=== PATIENT | female | born 1990 | race Caucasian/White ===

== ENCOUNTER 2022-10-21 19:43 | Inpatient (IN) ==
[2022-10-21] MEDS ORDERED: DEXTROSE 50% 50 ML SYRINGE IV PRN (20:17)
[2022-10-21] MEDS ORDERED: SODIUM CHLORIDE 0.9% 1000ML 1,000 ML IV PRN (20:17)
[2022-10-21] MEDS ORDERED: OXYTOCIN 30 UNITS/500 ML BAG IV PRN ×2 (20:17)
[2022-10-21] MEDS ORDERED: INSULIN REGULAR 250 UNITS in SODIUM CHLORIDE 0.9% 247.5 ML IV PRN (20:17)
[2022-10-21] MEDS ORDERED: LIDOCAINE 1% LOCAL 20 ML VIAL INFIL PRN (20:17)
--- NOTE | 2022-10-21 20:24 | History & Physical Report ---
Date of Service October 21, 2022 Assessment & Plan (1) PROM (premature rupture of membranes): Plan: ROM for clear fluid confirmed on exam. Recommend IOL with pitocin, pt agreeable. Epidural on request. BP initially elevated likely d/t anxiety vs excitement, will get CMP with labs. Also will use insulin and glucose management protocol to ensure tight control peripartum. Pt agreeable. History of Present Illness Primary Care Provider: Suresh Jade LMP: 02/05/22 : 1 Full term: 0 Premature: 0 Total Number of Induced Abortions: 0 Total Number of Spontaneous Abortions: 0 Ectopics: 0 Multiple births: 0 Number of Living Children: 0 and Delivery Plans Conceived on Femara GDM on insulin *Wkly NSTs @32wks and Twice wkly @36wks *Serial growth US @28wks (EFW 10/20 was 76% and AC 90%) *Deliver by [facility]--induction scheduled 11/08/22(penciled her in due to anxiety see below) Obesity (BMI between 35-39 @ beginning of ) *Growth US @ 32 wks *Weekly NSTs @ 36wks Presents to L&D with c/o SROM at 1815 this evening. No painful ctx, no VB, good FM. She has A2GDM and discusses insulin dose changes and recent improvements in sugar control with percentiles improving from their highest measurements. Pt spontaneously voices awareness of risks of large AC and that she wants to attempt vaginal delivery. Allergies Allergy/AdvReac Type Severity Reaction Status Date / Time No Known Drug Allergies Allergy Verified 10/20/22 14:56 Home Medications Medication Instructions Recorded Confirmed Type fluoxetine 10 mg tablet PO 01/11/19 10/20/22 History omeprazole 20 mg capsule,delayed PO 01/11/19 10/20/22 History release Saccharomyces boulardii [Daily PO 04/22/21 10/20/22 History Probiotic (S. boulardii)] fluoxetine 20 mg capsule 20 mg PO DAILY 04/22/21 10/20/22 History prenat.vits,berto,ijw-dxyx-biutp PO 04/22/21 10/20/22 History loratadine [Claritin] PO 04/05/22 10/20/22 History acetone (urine) test (Ketone Urine #50 ea 06/26/22 10/20/22 Rx Test strips) blood sugar diagnostic (OneTouch #150 ea 06/26/22 10/20/22 Rx Verio test strips) blood-glucose meter (OneTouch #1 ea 06/26/22 10/20/22 Rx Verio Reflect Meter) lancets 33 gauge (OneTouch Delica #150 ea 06/26/22 10/20/22 Rx Lancets) insulin NPH isoph U-100 human 100 10 unit (0.1 mL) subcut QPM #15 mL 07/09/22 10/20/22 Rx unit/mL (3 mL) subcutaneous pen (Novolin N FlexPen) pen needle, diabetic 32 gauge x #100 ea 07/09/22 10/20/22 Rx 5/32" (BD Ultra-Fine Susan Pen Needle) Patient History Medical History Acne vulgaris Allergic reaction Anxiety Chronic pelvic pain in female Female hirsutism H/O esophageal reflux H/O varicella Headache Hemorrhoids Lentigines Myalgia and myositis Viral warts Surgical History H/O colonoscopy with polypectomy History of dilation and curettage S/P tonsillectomy Family History Grandmother (Paternal) Breast cancer Grandmother (Maternal) Heart disease Mother Ovarian cancer, Onset Age: 45 Quyen-Danlos syndrome Grandfather (Paternal) Colorectal cancer Social History Smoking Status: Never smoker Do You Dip or Chew Tobacco: No; Hx Alcohol Use: Yes Hx Substance Use: No marital status: marital status details: Johnny Gaviria (32) [phone] Current Living Situation: Spouse Current Living Situation Comment: lives with spouse, dogs current occupational status: employed 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 EFW 8-9lb, most recent growth US reviewed. Results & Data Vital Signs (Past 12 Hours) Vital Signs Temp Pulse Resp BP 10/21/22 19:53 20 10/21/22 19:53 99.1 F 20 10/21/22 19:52 96 H 144/92 H Coding Level of Care Code None Diagnoses PROM (premature rupture of membranes) O42.90
[2022-10-21 21:12] LABS: Hemoglobin 12.4 g/dl (12.0-16.0); Mean Corpuscular Hemoglobin 29.5 pg (25.0-34.0); Mean Corpuscular Hgb Conc 34.4 g/dL (32.0-36.0); Mean Corpuscular Volume 85.7 fL (80.0-100.0); Mean Platelet Volume 11.9 fL (9.4-12.4); Platelet Count 203 K/uL (130-400); RDW Coefficient of Variation 13.8 % (11.5-14.5); RDW Standard Deviation 42.8 fL (36.4-46.3); White Blood Count 9.57 K/ul (4.8-10.8)
[2022-10-21 21:15] LABS: Albumin Globulin Ratio 1.2 (0.9-2); Albumin Level 3.6 gm/dl (3.4-5.0); Bilirubin Direct 0.1 mg/dl (0-0.2); Bilirubin,Total 0.2 mg/dl (0.2-1.0); Calcium 8.9 mg/dl (8.6-10.3); Creatinine Clr Calc Pharmacy 141.4 ml/min; Est GFR (African American) 137.1 ml/min; Est GFR (Non-African American) 118.3 ml/min; Globulin 2.9 gm/dl (2.5-4.0); Potassium 4.1 mmol/L (3.5-5.1); Total Protein 6.5 gm/dl (6.0-8.3)
[2022-10-21] MEDS: DEXTROSE 5% 1,000 ML IV PRN (21:25)
[2022-10-21] MEDS: LACTATED RINGER'S 1,000 ML IV PRN (21:35)
--- NOTE | 2022-10-21 23:24 | Communication Note ---
Date of Service: October 21, 2022 Strip reviewed, course of care d/w SANDY Mancera. T Cat 1, [place] Q4-7, barely uncomfortable. Continue to titrate pitocin upward.
[2022-10-22] MEDS ORDERED: BUTORPHANOL TARTRATE 1 MG/ML VIAL IV ONE (02:18)
[2022-10-22] MEDS ORDERED: LIDOCAINE 2%/EPINEPHRINE 1:200,000 20 ML PF ONE (06:20)
[2022-10-22] MEDS ORDERED: ePHEDrine sulfate 50 MG/ML AMP ONE (06:20)
[2022-10-22] MEDS ORDERED: BUPIVACAINE 0.25% PF 30 ML VIAL ONE (06:20)
[2022-10-22] MEDS ORDERED: SODIUM CHLORIDE 0.9% PF INJ 10 ML VIAL ONE (06:20)
[2022-10-22] MEDS ORDERED: fentaNYL citrate PF 100 MCG/2 ML VIAL ONE (06:20)
[2022-10-22] MEDS ORDERED: fentaNYL 2MCG/ML ROPIVACAINE 1.25MG/ML 100 ML BAG EPI ONE (06:21)
--- NOTE | 2022-10-22 06:44 | Labor Progress Brief Note ---
Date of Service October 22, 2022 Subjective Ready for epidural but wants to wait until her mother arrives to hospital to support her while receiving it. Assessment & Plan (1) Insulin controlled gestational diabetes mellitus (GDM) during : Plan: Insulin/sugar protocol in place. (2) PROM (premature rupture of membranes): Plan: Induction with pitocin in progress. Admission and Anticipated Discharge Date Admission Date: October 21, 2022 Physical Exam Genitourinary: Cervix exam deferred until after upcoming epidural. FHT Cat 1 [place] Q3 Results & Data Vital Signs (Past 12 Hours) Vital Signs Temp Pulse Resp BP 10/21/22 20:12 99.1 F 20 10/22/22 05:07 20 10/22/22 05:07 98.6 F 10/22/22 05:43 76 129/69 10/22/22 04:51 80 108/52 L 10/22/22 03:45 88 123/66 10/22/22 01:13 18 10/22/22 01:13 98.6 F 18 10/22/22 03:02 16 10/22/22 03:02 98.4 F 16 10/22/22 02:43 83 113/73 10/22/22 01:43 81 118/60 10/22/22 00:43 83 135/72 10/21/22 23:44 90 121/77 10/21/22 23:01 98.4 F 93 H 18 135/81 10/21/22 20:33 94 H 137/83 10/21/22 19:53 20 10/21/22 19:53 99.1 F 20 10/21/22 19:52 96 H 144/92 H Coding Level of Care Code None Diagnoses Insulin controlled gestational diabetes mellitus (GDM) during O24.414 PROM (premature rupture of membranes) O42.90
--- NOTE | 2022-10-22 07:58 | Labor Progress Brief Note ---
Date of Service October 22, 2022 Subjective Wants an exam before deciding for epidural. Mom and FOB now at bedside. Assessment & Plan (1) PROM (premature rupture of membranes): Plan: Will get epidural Admission and Anticipated Discharge Date Admission Date: October 21, 2022 Physical Exam Genitourinary: 2/100/-1 clear fluid leaking FHT Cat 1 [place] Q2-3m Pit @ 16 Results & Data Vital Signs (Past 12 Hours) Vital Signs Temp Pulse Resp BP 10/22/22 07:00 97.9 F 18 10/22/22 07:00 18 10/21/22 20:12 99.1 F 20 10/22/22 07:54 77 125/66 10/22/22 07:39 81 128/78 10/22/22 07:24 77 137/79 10/22/22 06:44 77 145/79 H 10/22/22 05:07 20 10/22/22 05:07 98.6 F 20 10/22/22 05:43 76 129/69 10/22/22 04:51 80 108/52 L 10/22/22 03:45 88 123/66 10/22/22 01:13 18 10/22/22 01:13 98.6 F 18 10/22/22 03:02 16 10/22/22 03:02 98.4 F 16 10/22/22 02:43 83 113/73 10/22/22 01:43 81 118/60 10/22/22 00:43 83 135/72 10/21/22 23:44 90 121/77 10/21/22 23:01 98.4 F 93 H 18 135/81 10/21/22 20:33 94 H 137/83 Coding Level of Care Code None Diagnoses PROM (premature rupture of membranes) O42.90
[2022-10-22] MEDS: LACTATED RINGER'S 1,000 ML IV PRN ×2 (08:14→12:55)
--- NOTE | 2022-10-22 08:30 | Anesthesiology Consultation ---
Date of Service October 22, 2022 Assessment & Plan Chart Review Chart Review: Acceptable Risk for Surgery, Patient NOT seen in Pre Admission Testing and Acceptable Risk for Labor Epidural Consults Requested none ASA ASA3 Proposed Anesthesia Anesthesia Type: Labor Epidural and CSE History Height/Weight Height: 5 ft 2 in Weight: 103.419 kg Allergies Allergy/AdvReac Type Severity Reaction Status Date / Time No Known Drug Allergies Allergy Verified 10/20/22 14:56 Medications Home Medications Medication Instructions Recorded Confirmed Last Taken fluoxetine 10 mg tablet 10 mg PO DAILY 01/11/19 10/21/22 10/20/22 21:00 omeprazole 20 mg capsule,delayed 30 mg PO DAILY 01/11/19 10/21/22 10/20/22 release Saccharomyces boulardii [Daily 1 tab PO DAILY 04/22/21 10/21/22 10/20/22 Probiotic (S. boulardii)] prenat.vits,berto,ata-oulp-bywrc 1 tab PO DAILY 04/22/21 10/21/22 10/20/22 loratadine [Claritin] 1 tab PO DAILY 04/05/22 10/20/22 10/20/22 acetone (urine) test (Ketone Urine #50 ea 06/26/22 10/20/22 Unknown Test strips) blood sugar diagnostic (OneTouch #150 ea 06/26/22 10/20/22 Unknown Verio test strips) blood-glucose meter (OneTouch #1 ea 06/26/22 10/20/22 Unknown Verio Reflect Meter) lancets 33 gauge (OneTouch Delica #150 ea 06/26/22 10/20/22 Unknown Lancets) pen needle, diabetic 32 gauge x #100 ea 07/09/22 10/20/22 Unknown 5/32" (BD Ultra-Fine Susan Pen Needle) insulin NPH isoph U-100 human 100 50 unit subcut QPM 10/21/22 10/21/22 10/20/22 unit/mL (3 mL) subcutaneous pen (Novolin N FlexPen) Active Medications Generic Name Dose Route Start Last Admin Trade Name Freq PRN Reason Stop Dose Admin Oxytocin 30 units in 500 mls @ 16 mls/hr 10/21/22 20:17 10/22/22 08:15 Pitocin IV 10/23/22 20:16 1.08 units/hr .Q24H PRN 18 mls/hr Labor Induction/Augmentation Titration Protocol 0.96 UNITS/HR Insulin Human Regular 250 250 mls @ 1 mls/hr 10/21/22 20:17 10/22/22 08:11 units/ Sodium Chloride IV 11/20/22 20:16 1 units/hr .Q24H PRN 1 mls/hr BSG 80mg/dL or ABOVE Titration Protocol 1 UNITS/HR Dextrose 1,000 mls @ 100 mls/hr 10/21/22 20:17 10/22/22 08:12 D5w IV 11/20/22 20:16 75 mls/hr .Q10H PRN Infusion BSG 180 or below Protocol Lactated Ringer's 1,000 mls @ 125 mls/hr 10/21/22 20:17 10/22/22 08:14 Lr IV 10/23/22 20:16 999 mls/hr .Q8H PRN Administration L&D Protocol Protocol Past Medical History Medical History Acne vulgaris Allergic reaction Anxiety Chronic pelvic pain in female Female hirsutism H/O esophageal reflux H/O varicella Headache Hemorrhoids Lentigines Myalgia and myositis Viral warts morbid obesity Exercise / Class Metabolic Activity II 4-5 Yardwork/Stairs/Walk up hill Past Family History Family History Grandmother (Paternal) Breast cancer Secondary Grandmother (Maternal) Heart disease Mother Ovarian cancer, Onset Age: 45 Quyen-Danlos syndrome Grandfather (Paternal) Colorectal cancer Great Grandfather? Past Surgical History Surgical History H/O colonoscopy with polypectomy For rectal bleeding- History of dilation and curettage S/P tonsillectomy Past Anesthesia History No Hx of Anesthesia Complications and No Family Hx of Anesthesia Complications History of PONV No Hx of PONV and No Hx of Motion Sickness Social History Smoking Status: Never smoker Do You Dip or Chew Tobacco: No Hx Alcohol Use: Yes Hx Substance Use: No Physical Exam Vital Signs Last Vital Signs Temp 36.6 C 10/22/22 07:00 Pulse 83 10/22/22 08:27 Resp 18 10/22/22 07:00 BP 129/83 10/22/22 08:24 Pulse Ox 99 10/22/22 08:27 Testing Laboratory Results 10/21/22 20:30 10/21/22 20:30 Blood Type Cancelled 10/21/22 20:30 Blood Type O Positive 10/21/22 20:30 Antibody Screen Cancelled 10/21/22 20:30 Antibody Screen NEGATIVE 10/21/22 20:30 10/22/22 10/22/22 10/22/22 08:09 07:03 06:02 POC Glucose 109 H 100 H 96 10/22/22 10/22/22 10/22/22 05:03 04:05 02:50 POC Glucose 104 H 99 96 10/22/22 10/22/22 10/21/22 02:10 00:53 23:54 POC Glucose 95 92 107 H 10/21/22 10/21/22 10/21/22 22:58 21:52 20:50 POC Glucose 96 133 H 98
[2022-10-22] MEDS: DEXTROSE 5% 1,000 ML IV PRN (08:35)
[2022-10-22] MEDS ORDERED: BUPIVACAINE 0.25% PF 30 ML VIAL EPI PRN (09:06)
[2022-10-22] MEDS ORDERED: BUPIVACAINE 0.25% PF 30 ML VIAL EPI STA (09:06)
[2022-10-22] MEDS ORDERED: ePHEDrine sulfate 50 MG/ML AMP IV PRN (09:06)
[2022-10-22] MEDS ORDERED: NALBUPHINE HCL INJ 10 MG/ML AMP IV PRN (09:06)
[2022-10-22] MEDS ORDERED: ROPIVACAINE 0.5% PF 5 MG/ML 20 ML VIAL EPI PRN (09:06)
[2022-10-22] MEDS ORDERED: NALOXONE HCL 1 MG in SODIUM CHLORIDE 0.9% 1000ML 1,000 ML IV PRN (09:06)
[2022-10-22] MEDS ORDERED: ONDANSETRON INJ 2 MG/ML 2 ML VIAL IV PRN (09:06)
[2022-10-22] MEDS ORDERED: diphenhydrAMINE 50 MG/ML VIAL IV PRN (09:06)
[2022-10-22] MEDS ORDERED: PROMETHAZINE HCL 25 MG in SODIUM CHLORIDE 0.9% 50 ML IV PRN (09:06)
[2022-10-22] MEDS ORDERED: fentaNYL 2MCG/ML ROPIVACAINE 1.25MG/ML 100 ML BAG EPI PRN (09:06)
[2022-10-22] MEDS ORDERED: fentaNYL citrate PF 100 MCG/2 ML VIAL EPI STA (09:06)
[2022-10-22] MEDS ORDERED: LIDOCAINE 2% MPF LOCAL 5 ML VIAL EPI PRN (09:06)
[2022-10-22] MEDS ORDERED: LIDOCAINE 2%/EPINEPHRINE 1:200,000 20 ML PF EPI STA (09:06)
[2022-10-22] MEDS ORDERED: NALOXONE HCL 0.4 MG/1 ML VIAL/CARP IV PRN (09:06)
[2022-10-22] MEDS ORDERED: SODIUM CHLORIDE 0.9% PF INJ 10 ML VIAL EPI STA (09:06)
[2022-10-22] MEDS ORDERED: fentaNYL citrate PF 100 MCG/2 ML VIAL EPI PRN (09:06)
[2022-10-22] MEDS ORDERED: SODIUM CHLORIDE 0.9% PF INJ 10 ML VIAL EPI PRN (09:06)
[2022-10-22] MEDS ORDERED: ACETAMINOPHEN 325 MG TAB PO PRN ×2 (13:41→18:22)
--- NOTE | 2022-10-22 13:55 | Labor Progress Brief Note ---
Date of Service October 22, 2022 Subjective Comfortable with epidural Assessment & Plan Admission and Anticipated Discharge Date Admission Date: October 21, 2022 Physical Exam Genitourinary: 7/100/0 FHT Cat 1 [place] Q6 Results & Data Vital Signs (Past 12 Hours) Vital Signs Temp Pulse Resp BP Pulse Ox 10/22/22 07:00 97.9 F 18 10/22/22 07:00 18 10/22/22 13:52 99 H 100 10/22/22 13:47 95 H 100 10/22/22 13:42 98 H 100 10/22/22 13:40 94 H 126/73 10/22/22 13:37 101 H 100 10/22/22 13:32 102 H 100 10/22/22 13:27 96 H 100 10/22/22 13:26 98 H 93 10/22/22 13:25 91 H 20 119/72 10/22/22 13:22 99 H 99 10/22/22 13:17 92 H 98 10/22/22 13:12 93 H 98 10/22/22 13:10 90 118/63 10/22/22 13:07 92 H 99 10/22/22 13:02 94 H 99 10/22/22 13:00 16 10/22/22 13:00 98.2 F 16 10/22/22 12:57 93 H 99 10/22/22 12:56 89 109/57 L 10/22/22 12:52 95 H 100 10/22/22 12:47 89 98 10/22/22 12:42 85 97 10/22/22 12:40 88 106/58 L 10/22/22 12:38 108 H 93 10/22/22 12:37 106 H 99 10/22/22 12:30 16 10/22/22 12:30 16 10/22/22 12:32 107 H 95 10/22/22 12:27 83 98 10/22/22 12:25 86 107/59 L 10/22/22 12:22 96 H 100 10/22/22 12:17 82 98 10/22/22 12:12 81 98 10/22/22 12:10 88 107/58 L 10/22/22 12:07 81 99 10/22/22 12:02 78 99 10/22/22 12:00 18 10/22/22 12:00 18 10/22/22 11:57 80 99 10/22/22 11:55 79 108/56 L 10/22/22 11:52 83 100 10/22/22 11:47 72 99 10/22/22 11:42 70 100 10/22/22 11:40 71 122/67 10/22/22 11:37 88 99 10/22/22 11:30 18 10/22/22 11:30 18 10/22/22 11:32 70 100 10/22/22 11:27 74 100 10/22/22 11:26 72 123/67 10/22/22 11:00 18 10/22/22 11:00 98.1 F 18 10/22/22 11:22 73 100 10/22/22 11:17 83 100 10/22/22 11:12 89 100 10/22/22 11:10 73 117/71 10/22/22 11:07 93 H 93 10/22/22 11:02 91 H 98 10/22/22 10:57 85 100 10/22/22 10:55 85 124/70 10/22/22 10:52 92 H 100 10/22/22 10:47 90 99 10/22/22 10:42 88 100 10/22/22 10:41 88 133/68 10/22/22 10:37 89 100 10/22/22 10:32 94 H 100 10/22/22 10:30 89 16 93 10/22/22 10:27 94 H 115/66 100 10/22/22 10:22 90 99 10/22/22 10:17 90 100 10/22/22 10:12 89 100 10/22/22 10:11 86 127/63 10/22/22 10:07 99 H 100 10/22/22 10:02 93 H 100 10/22/22 09:57 105 H 99 10/22/22 09:55 97 H 120/71 10/22/22 09:52 96 H 96 10/22/22 09:49 94 H 92 10/22/22 09:47 96 H 97 10/22/22 09:06 16 10/22/22 09:06 16 10/22/22 09:30 18 10/22/22 09:30 18 10/22/22 09:42 100 H 98 10/22/22 09:37 99 10/22/22 09:37 101 H 10/22/22 09:37 96 H 122/72 10/22/22 09:32 101 H 86 L 10/22/22 09:31 98 H 118/72 10/22/22 09:29 96 H 117/57 L 10/22/22 09:27 100 10/22/22 09:27 97 H 10/22/22 09:27 105 H 117/58 L 10/22/22 09:24 99 H 110/51 L 10/22/22 09:22 99 H 100 10/22/22 09:21 111 H 115/60 10/22/22 09:19 96 H 126/60 10/22/22 09:17 113 H 130/72 100 10/22/22 09:14 92 H 101/56 L 10/22/22 09:13 92 10/22/22 09:13 93 H 10/22/22 09:12 86 100 10/22/22 09:13 86 93/51 L 10/22/22 09:11 88 92/46 L 10/22/22 09:09 93 H 104/64 10/22/22 09:07 100 10/22/22 09:07 83 10/22/22 09:07 80 91/53 L 10/22/22 09:05 87 103/51 L 10/22/22 09:02 110 H 100 10/22/22 09:03 110 H 18 102/63 10/22/22 09:01 113 H 92 10/22/22 08:59 98.2 F 89 149/67 H 10/22/22 08:57 87 100 10/22/22 08:53 91 H 151/56 H 10/22/22 08:52 88 98 10/22/22 08:50 81 86 L 10/22/22 08:48 82 147/70 H 10/22/22 08:47 80 100 10/22/22 08:42 80 100 10/22/22 08:37 87 100 10/22/22 08:32 77 99 10/22/22 08:27 83 99 10/22/22 08:24 78 129/83 10/22/22 08:22 75 99 10/22/22 08:17 78 98 10/22/22 08:12 75 98 10/22/22 08:08 69 128/71 10/22/22 08:07 81 97 10/22/22 07:54 77 125/66 10/22/22 07:39 81 128/78 10/22/22 07:24 77 137/79 10/22/22 06:44 77 145/79 H 10/22/22 05:07 20 10/22/22 05:07 98.6 F 20 10/22/22 05:43 76 129/69 10/22/22 04:51 80 108/52 L 10/22/22 03:45 88 123/66 10/22/22 03:02 16 10/22/22 03:02 98.4 F 16 10/22/22 02:43 83 113/73 Coding Level of Care Code None Diagnoses
[2022-10-22] MEDS ORDERED: HYDROCORTISONE ACETATE 25 MG SUPP PR PRN (18:22)
[2022-10-22] MEDS ORDERED: bisacodyL 10 MG SUPP PR PRN (18:22)
[2022-10-22] MEDS ORDERED: DIPHTHERIA/TETANUS/PERTUSSIS Vaccine (Tdap, Age 7+yrs) 0.5mL SYR/VL IM ONE (18:22)
[2022-10-22] MEDS ORDERED: BENZOCAINE 20% AER SPR 82.5 GM CAN EXT PRN (18:22)
[2022-10-22] MEDS ORDERED: oxyCODONE/ACETAMINOPHEN 5mg/325mg TAB PO PRN (18:22)
--- NOTE | 2022-10-22 18:24 | Delivery Summary ---
Vaginal Delivery Summary Date of Service October 22, 2022 Vaginal Delivery Summary DIAGNOSES: 1. Miller intrauterine at 37w0d gestation. 2. PROM, Induction of labor. 3. Group B Streptococcus unknown @ term. PROCEDURE: Spontaneous vaginal delivery without laceration. SURGEON: Sarah Adams MD. PACKAGING ENGINEER: None. ESTIMATED BLOOD LOSS: 300 mL. COMPLICATIONS: None. PLACENTA: Spontaneous and intact with a 3-vessel cord. DISPOSITION: Stable to labor and delivery. DESCRIPTION: The patient pushed well and brought the head to in OA position. The infant's head was allowed to deliver with contraction force and no further active pushing, with the perineum protected during this time. There was no nuchal cord. The left shoulder was anterior. The shoulders and body delivered without any difficulty, and the was placed on the maternal abdomen. It was vigorous and moving all extremities, and making respiratory efforts. The cord was doubly clamped by the MD and then cut by the FOB. The placenta delivered spontaneously and was noted to be intact and with a 3VC. The cervix, vagina and perineum were examined and were found to be without defect requiring repair. The fundus was firm and lochia minimal immediately after delivery. [facility] [place] Vaginal Delivery Charge Vaginal Delivery Codes: 37695 global code for the antepartum, delivery, and post-
--- NOTE | 2022-10-22 18:36 | Anesthesia Procedure Note ---
Date of Service October 22, 2022 Anesthesia Post Epidural Note Vital Signs Vital Signs: Temp Pulse Resp BP Pulse Ox 36.5 C 114 H 20 120/61 100 10/22/22 17:10 10/22/22 18:25 10/22/22 18:00 10/22/22 18:25 10/22/22 18:03 Notes Mental Status: alert / awake / arousable Nausea / Vomiting: adequately controlled Pain: adequately controlled Airway Patency, RR, SpO2: stable & adequate BP & HR: stable & adequate Hydration State: stable & adequate Neuraxial Anesthesia: was administered and sensory block is resolving Anesthetic Complications: no major complications apparent Epidural: Removed without complications and With tip intact
[2022-10-22] MEDS: DOCUSATE SODIUM 100 MG CAP PO SCH (22:02)
[2022-10-22] MEDS: IBUPROFEN 600 MG TAB PO PRN (22:02)
[2022-10-23] MEDS: IBUPROFEN 600 MG TAB PO PRN ×3 (02:55→15:33)
--- NOTE | 2022-10-23 07:36 | Obstetrical Progress Note ---
Date of Service <Madelyn Zheng DO - Last Filed: 10/23/22 07:36> October 23, 2022 Assessment & Plan <Madelyn Zheng DO - Last Filed: 10/23/22 07:36> (1) care following vaginal delivery: Feels well today. Eating well, voiding well, ambulating well. Pain well controlled with prn motrin. Routine care; OOB, ambulation, continue regular diet. Plan for discharge today. After discharge will have 6 week follow-up with Dr. Adams. <Sarah Adams MD - Last Filed: 10/23/22 07:36> (1) care following vaginal delivery: Subjective <Madelyn Zheng DO - Last Filed: 10/23/22 07:36> Pt is a 32 y/o female who is PPD#1 following at 36 6/7 weeks. complicated by GDM. Pt states that she is feeling well today and has been ambulating, voiding, and passing gas since her delivery. She has eaten since her delivery without any issues with nausea or vomiting. She has some persistent lochia with some improvement this morning. She states her pain is about a 3/10 well managed on motrin. She is , but notes difficulty with feeding since her baby boy (name may be Jeramy, undecided) has a tongue tie. Constitutional: no fever, no chills or no sweats Respiratory: no dyspnea Cardiovascular: no chest pain or no palpitations Breast: no breast pain Genitourinary (female): no dysuria Neurologic: no headache(s) no changes in vision, no headaches Physical Exam <Madelyn Zheng DO - Last Filed: 10/23/22 07:36> General: Alert, oriented. No acute distress. Cardiac: Regular rate and rhythm, no murmurs, rubs, or gallops. Respiratory: Clear to auscultation bilaterally, no wheezes/rales/rhonchi. No increased work of breathing. Symmetrical chest rise. No respiratory distress. Abdomen: Soft, nontender, nondistended. Bowel sounds present. Uterus: Uterine fundus firm, palpable below the umbilicus. Lower extremities: No lower extremity edema or swelling. No deep calf pain. Results & Data <Madelyn Zheng DO - Last Filed: 10/23/22 07:36> Vital Signs (Past 12 Hours) Vital Signs Temp Pulse Pulse Resp BP BP Pulse Ox 10/23/22 03:00 36.7 C 90 16 120/81 98 10/23/22 00:15 108 H 126/76 10/22/22 22:20 36.7 C 89 16 141/87 H 98 10/22/22 20:10 103 H 129/62 10/22/22 19:55 108 H 131/61 10/22/22 19:40 110 H 134/63 O2 Del Method 10/23/22 03:00 Room Air 10/23/22 00:15 10/22/22 22:20 Room Air 10/22/22 20:10 10/22/22 19:55 10/22/22 19:40 <Sarah Adams MD - Last Filed: 10/23/22 07:36> Co-Signing Physician Notes Resident Physician Supervision Note: I interviewed and examined the patient. Discussed with Dr. Zheng and agree with findings and plan as documented in the note. Any exceptions or clarifications are listed here: [ ] Documented By: Sarah Adams MD, FACOG Resident Activity Tracking <Madelyn Zheng DO - Last Filed: 10/23/22 07:36> Resident Involvement: Resident Care Provided Care Provided: OB Delivery
[2022-10-23 08:07] LABS: Hematocrit (blood only) 34.2 % (37.0-47.0); Hemoglobin 11.7 g/dl (12.0-16.0); Mean Corpuscular Hemoglobin 29.5 pg (25.0-34.0); Mean Corpuscular Hgb Conc 34.2 g/dL (32.0-36.0); Mean Corpuscular Volume 86.1 fL (80.0-100.0); Mean Platelet Volume 11.6 fL (9.4-12.4); Platelet Count 180 K/uL (130-400); RDW Coefficient of Variation 14.2 % (11.5-14.5); Red Blood Count 3.97 M/uL (4.20-5.40); White Blood Count 12.15 K/ul (4.8-10.8)
[2022-10-23] MEDS: DOCUSATE SODIUM 100 MG CAP PO SCH ×2 (09:19→21:26)
[2022-10-23] MEDS: PRENATAL VITAMIN 1 TAB PO SCH (09:19)
[2022-10-23] MEDS ORDERED: bisacodyL 5 MG TABEC PO SCH (20:00)
[2022-10-23] MEDS: FLUoxetine HCL 10 MG CAP PO SCH (21:16)
[2022-10-24 06:20] LABS: Hematocrit (blood only) 31.9 % (37.0-47.0); Hemoglobin 10.9 g/dl (12.0-16.0)
--- NOTE | 2022-10-24 06:40 | Obstetrical Progress Note ---
Date of Service <Madelyn Johnson DO Norm - Last Filed: 10/24/22 06:40> October 24, 2022 Assessment & Plan <Madelyn Johnson DO Norm - Last Filed: 10/24/22 06:40> (1) care following vaginal delivery: Feels well today. Eating well, voiding well, ambulating well. Pain well controlled with prn motrin. Routine care; OOB, ambulation, continue regular diet. Anticipate discharge today. After discharge will have 6 week follow-up with Dr. Adams. <Michaela Whittaker MD, FACOG - Last Filed: 10/24/22 08:30> (1) care following vaginal delivery: Subjective <Madelyn Alex DO Norm - Last Filed: 10/24/22 06:40> Pt is a 32 y/o female who is PPD#2 following at 36 6/7 weeks. Pt states that she is feeling well today. She has been ambulating, voiding, and passing gas. She has been tolerating regular diet without nausea or vomiting. She states that she had some increased bleeding yesterday, which has since lessened. She states her pain has been maybe a 2/10 and is well controlled with motrin or ibuprofen. She has no questions or complaints at this time. She is breast feeding. She states that since the tongue tie was clipped on baby, breast f eeding has gone much better. Constitutional: no fever, no chills or no sweats Respiratory: no dyspnea Cardiovascular: no chest pain or no palpitations Breast: no breast pain Genitourinary (female): no dysuria Neurologic: no headache(s) no changes in vision, no headaches Physical Exam <Madelyn Zheng DO - Last Filed: 10/24/22 06:40> General: Alert, oriented. No acute distress. Cardiac: Regular rate and rhythm, no murmurs, rubs, or gallops. Respiratory: Clear to auscultation bilaterally, no wheezes/rales/rhonchi. No increased work of breathing. Symmetrical chest rise. No respiratory distress. Abdomen: Soft, nontender, nondistended. Bowel sounds present. Uterus: Uterine fundus firm, palpable below the umbilicus. Lower extremities: No lower extremity edema or swelling. No deep calf pain. Results & Data <Madelyn Zheng DO - Last Filed: 10/24/22 06:40> Vital Signs (Past 12 Hours) Vital Signs Temp Pulse Resp BP 10/24/22 00:15 36.8 C 78 18 124/78 10/23/22 19:50 36.6 C 82 18 128/86 <Michaela Whittaker MD, FACOG - Last Filed: 10/24/22 08:30> Co-Signing Physician Notes Resident Physician Supervision Note: I was present with Dr. Zheng during the history and exam. I discussed the case with the resident and agree with the findings and plan as documented in the note. Any exceptions or clarifications are listed here: stable routine care, ready for dc home. abd soft ff 2down nt, nt calves. instructions reviewed, f/u 6 wk pp check. , rhpos, ri. Documented By: Michaela Whittaker MD, FACOG Resident Activity Tracking <Madelyn Zheng DO - Last Filed: 10/24/22 06:40> Resident Involvement: Resident Care Provided Care Provided: OB Delivery
[2022-10-24] MEDS: DOCUSATE SODIUM 100 MG CAP PO SCH (12:43)
[2022-10-24] MEDS: IBUPROFEN 600 MG TAB PO PRN (12:43)
[2022-10-24] MEDS: PRENATAL VITAMIN 1 TAB PO SCH (12:43)
[2022-10-24] MEDS: FLUoxetine HCL 10 MG CAP PO SCH (12:59)
== END 2022-10-24 17:50 | disposition home or self-care (01) | DRG 807 ==
LOC: OPB 19:43 → 4S1 19:44 → 4E2 10-22 22:06

== ENCOUNTER 2024-03-09 15:02 | Inpatient (IN) ==
[2024-03-09] MEDS ORDERED: OXYTOCIN 30 UNITS/NSS 30 UNITS/500 ML BAG IV PRN ×2 (15:42→22:11)
[2024-03-09] MEDS ORDERED: LIDOCAINE 1% LOCAL 20 ML VIAL INFIL PRN (15:42)
--- NOTE | 2024-03-09 15:45 | History & Physical Report ---
Date of Service March 09, 2024 Assessment & Plan (1) Insulin controlled gestational diabetes mellitus (GDM) during : Plan: Admit to L&D. EFM/toco/labs. Hourly glucose when in active labor. She is not sure that she wants to do an epidural - found itching with epidural last time to be bothersome. OK to ambulate as long as Cat 1 tracing, is open to idea of pitocin if needed if labor does not progress. History of Present Illness Chief Complaint: labor Primary Care Provider: Suresh Dottie Jade 33yo @ 38 06/13 here after gush of clear fluid at 10:40am. Not really feeling contractions, but is crampy. + movement. No vaginal bleeding. complicated by GDMA2, obesity. Taking insulin at nighttime, took last night's dose. Allergies Allergy/AdvReac Type Severity Reaction Status Date / Time No Known Drug Allergies Allergy Verified 03/05/24 10:04 Home Medications Medication Instructions Recorded Confirmed Type Saccharomyces boulardii [Daily 1 tab PO DAILY 04/22/21 03/05/24 History Probiotic (S. boulardii)] prenat.vits,berto,[id number] 1 tab PO DAILY 04/22/21 03/05/24 History cetirizine [Zyrtec] PO 08/03/23 03/05/24 History fluticasone propionate [Flonase intranasal 08/03/23 03/05/24 History Allergy Relief] omega-3 fatty acids [Fish Oil] PO 08/03/23 03/05/24 History acetone (urine) test (Ketone Urine #50 ea 09/13/23 03/05/24 Rx Test strips) lancets 33 gauge (OneTouch Delica #150 ea 09/13/23 03/05/24 Rx Plus Lancet) blood sugar diagnostic (OneTouch #150 ea 10/10/23 03/05/24 Rx Verio test strips) fluoxetine 10 mg capsule 10 mg PO DAILY 01/28/24 03/05/24 History fluoxetine 20 mg capsule 20 mg PO DAILY 01/28/24 03/05/24 History loratadine [Claritin] 1 tab PO DAILY PRN 01/28/24 03/05/24 History pen needle, diabetic 32 gauge x #100 ea 02/04/24 03/05/24 Rx " (BD Ultra-Fine Susan Pen Needle) insulin NPH isoph U-100 human 100 40 unit (0.4 mL) subcut HS #45 mL 02/06/24 03/05/24 Rx unit/mL (3 mL) subcutaneous pen (Novolin N FlexPen) Patient History Medical History (Updated 12/21/23 @ 08:25 by Catherine Watson, RD, LDN, CDE) Use of letrozole (Femara) Encounter for preconception consultation Abnormal weight gain Hemorrhoids Insomnia Lentigines Multiple benign nevi Obesity Oligomenorrhea PROM (premature rupture of membranes) Headache Myalgia and myositis Viral warts H/O varicella Lentigines Female hirsutism Hemorrhoids H/O esophageal reflux Chronic pelvic pain in female Anxiety Acne vulgaris Surgical History History of dilation and curettage H/O colonoscopy with polypectomy For rectal bleeding- S/P tonsillectomy Family History Grandmother (Paternal) Breast cancer Grandmother (Maternal) Heart disease Mother Ovarian cancer, Onset Age: 45 Quyen-Danlos syndrome Grandfather (Paternal) Colorectal cancer Social History (Updated 08/03/23 @ 13:14 by Madelyn Kuhn RN) Smoking Status: Never smoker Second Hand Exposure: No; Do You Dip or Chew Tobacco: No; Tobacco Cessation Education Requested by Patient: No Hx Alcohol Use: No Hx Substance Use: No Preferred Language: Sinhala Communication Ability: Effective Back Facer Required: No Beliefs That Will Affect Care: None marital status: marital status details: Johnny Gaviria (33) [phone] Current Living Situation: Spouse Current Living Situation Comment: - Johnny Deshpande 16 months current occupational status: employed 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 Other Information That Helps Us Care for You: No Feels Safe at Home: Yes Safety Concerns: Feels Safe At This Time Assistive Devices: None Review of Systems All systems reviewed & are unremarkable except as noted in HPI & below Physical Exam Physical Exam: FHT Cat 1 [place] occasional Sterile spec exam: +pooling, +nitrizine SVE 490/-2 Constitutional: WD/WN, vitals as above Respiratory: normal respiratory effort, lungs clear to auscultation no respiratory distress Cardiovascular: Rate/Rhythm: regular rate and regular rhythm Gastrointestinal (Abdomen): Inspection/Auscultation: abdomen normal to inspection Percussion/Palpation: abdomen soft; abdomen nontender Gravid. No s/s chorio or abruption. Skin: no rashes, warm and dry Psychiatric: A+Ox3, euthymic affect Results & Data Vital Signs (Past 12 Hours) Vital Signs Temp Pulse Resp BP 03/09/24 15:10 90 128/91 03/09/24 15:08 36.9 C 20 Coding Level of Care Code None Diagnoses Insulin controlled gestational diabetes mellitus (GDM) during O24.414
[2024-03-09 16:28] LABS: Hematocrit (blood only) 37.8 % (37.0-47.0); Hemoglobin 12.8 g/dl (12.0-16.0); Mean Corpuscular Hemoglobin 29.4 pg (25.0-34.0); Mean Corpuscular Hgb Conc 33.9 g/dL (32.0-36.0); Mean Corpuscular Volume 86.9 fL (80.0-100.0); Mean Platelet Volume 11.3 fL (9.4-12.4); Platelet Count 211 K/uL (130-400); RDW Coefficient of Variation 13.3 % (11.5-14.5); RDW Standard Deviation 41.7 fL (36.4-46.3); Red Blood Count 4.35 M/uL (4.20-5.40); White Blood Count 8.94 K/ul (4.8-10.8)
[2024-03-09 16:33] LABS: Albumin Globulin Ratio 1.4 (0.9-2); Albumin Level 3.6 gm/dl (3.4-5.0); Bilirubin,Total 0.2 mg/dl (0.2-1.0); Calcium 9.1 mg/dl (8.6-10.3); Creatinine Clr Calc Pharmacy 151.2 ml/min; Globulin 2.5 gm/dl (2.5-4.0); Total Protein 6.1 gm/dl (6.0-8.3)
[2024-03-09] MEDS: LACTATED RINGER'S 1,000 ML IV SCH (17:20)
[2024-03-09] MEDS ORDERED: fentaNYL citrate PF 100 MCG/2 ML VIAL EPI STA (17:40)
[2024-03-09] MEDS ORDERED: BUPIVACAINE 0.25% PF 30 ML VIAL EPI STA (17:40)
[2024-03-09] MEDS ORDERED: SODIUM CHLORIDE 0.9% PF INJ 10 ML VIAL EPI STA (17:40)
[2024-03-09] MEDS ORDERED: fentANYL 2 MCG/ML BUPIVacaine 0.125%-NSS 100ML BAG EPI PRN (17:40)
[2024-03-09] MEDS ORDERED: ROPIVACAINE 0.5% PF 5 MG/ML 20 ML VIAL EPI PRN (17:40)
[2024-03-09] MEDS ORDERED: SODIUM CHLORIDE 0.9% PF INJ 10 ML VIAL EPI PRN (17:40)
[2024-03-09] MEDS ORDERED: fentaNYL citrate PF 100 MCG/2 ML VIAL EPI PRN (17:40)
[2024-03-09] MEDS ORDERED: LIDOCAINE 2%/EPINEPHRINE 1:200,000 20 ML PF EPI STA (17:40)
[2024-03-09] MEDS ORDERED: NALOXONE HCL 0.4 MG/1 ML VIAL/CARP IV PRN (17:40)
[2024-03-09] MEDS ORDERED: NALBUPHINE HCL INJ 10 MG/ML AMP IV PRN (17:40)
[2024-03-09] MEDS ORDERED: ePHEDrine sulfate 50 MG/ML AMP IV PRN (17:40)
[2024-03-09] MEDS ORDERED: LIDOCAINE 2% MPF LOCAL 5 ML VIAL EPI PRN (17:40)
[2024-03-09] MEDS ORDERED: NALOXONE HCL 1 MG in SODIUM CHLORIDE 0.9% 1,000 ML IV PRN (17:40)
[2024-03-09] MEDS ORDERED: BUPIVACAINE 0.25% PF 30 ML VIAL EPI PRN (17:40)
--- NOTE | 2024-03-09 17:40 | Anesthesiology Consultation ---
Date of Service March 09, 2024 Assessment & Plan Chart Review Chart Review: Acceptable Risk for Labor Epidural History Height/Weight Height: 5 ft 2 in Weight: 99.79 kg Allergies Allergy/AdvReac Type Severity Reaction Status Date / Time No Known Drug Allergies Allergy Verified 03/05/24 10:04 Medications Home Medications Medication Instructions Recorded Confirmed Last Taken Saccharomyces boulardii [Daily 1 tab PO DAILY 04/22/21 03/05/24 10/20/22 Probiotic (S. boulardii)] prenat.vits,berto,[id number]-xtpp-dkucs 1 tab PO DAILY 04/22/21 03/05/24 10/20/22 cetirizine [Zyrtec] PO 08/03/23 03/05/24 Unknown fluticasone propionate [Flonase intranasal 08/03/23 03/05/24 Unknown Allergy Relief] omega-3 fatty acids [Fish Oil] PO 08/03/23 03/05/24 Unknown acetone (urine) test (Ketone Urine #50 ea 09/13/23 03/05/24 Unknown Test strips) lancets 33 gauge (OneTouch Delica #150 ea 09/13/23 03/05/24 Unknown Plus Lancet) blood sugar diagnostic (OneTouch #150 ea 10/10/23 03/05/24 Unknown Verio test strips) fluoxetine 10 mg capsule 10 mg PO DAILY 01/28/24 03/05/24 Unknown fluoxetine 20 mg capsule 20 mg PO DAILY 01/28/24 03/05/24 Unknown loratadine [Claritin] 1 tab PO DAILY PRN 01/28/24 03/05/24 Unknown pen needle, diabetic 32 gauge x #100 ea 02/04/24 03/05/24 Unknown /32" (BD Ultra-Fine Susan Pen Needle) insulin NPH isoph U-100 human 100 40 unit (0.4 mL) subcut HS #45 mL 02/06/24 03/05/24 Unknown unit/mL (3 mL) subcutaneous pen (Novolin N FlexPen) Active Medications Generic Name Dose Route Start Last Admin Trade Name Freq PRN Reason Stop Dose Admin Lactated Ringer's 1,000 mls @ 80 mls/hr 03/09/24 17:30 03/09/24 17:20 Lr IV 03/10/24 17:29 999 mls/hr .[id number] SEBASTIAN Administration Past Medical History Medical History (Updated 12/21/23 @ 08:[address], LDN, CDE) Use of letrozole (Femara) Encounter for preconception consultation Abnormal weight gain Hemorrhoids Insomnia Lentigines Multiple benign nevi Obesity Oligomenorrhea PROM (premature rupture of membranes) Headache Myalgia and myositis Viral warts H/O varicella Lentigines Female hirsutism Hemorrhoids H/O esophageal reflux Chronic pelvic pain in female Anxiety Acne vulgaris Past Family History Family History Grandmother (Paternal) Breast cancer Grandmother (Maternal) Heart disease Mother Ovarian cancer, Onset Age: 45 Quyen-Danlos syndrome Grandfather (Paternal) Colorectal cancer Past Surgical History Surgical History History of dilation and curettage H/O colonoscopy with polypectomy For rectal bleeding- S/P tonsillectomy Social History Smoking Status: Never smoker Do You Dip or Chew Tobacco: No Hx Alcohol Use: No Hx Substance Use: No Physical Exam Vital Signs Last Vital Signs Temp 36.7 C 03/09/24 17:02 Pulse 79 03/09/24 17:38 Resp 20 03/09/24 15:08 BP 130/83 03/09/24 17:02 Pulse Ox 99 03/09/24 17:38 Testing Laboratory Results 03/09/24 15:55 03/09/24 15:55 03/09/24 17:13 POC Glucose 86
[2024-03-09] MEDS: fentaNYL citrate PF 100 MCG/2 ML VIAL ONE (18:07)
[2024-03-09] MEDS: SODIUM CHLORIDE 0.9% PF INJ 10 ML VIAL ONE (18:07)
[2024-03-09] MEDS: BUPIVACAINE 0.25% PF 30 ML VIAL ONE (18:07)
[2024-03-09] MEDS: LIDOCAINE 2%/EPINEPHRINE 1:200,000 20 ML PF ONE (18:07)
[2024-03-09] MEDS: fentANYL 2 MCG/ML BUPIVacaine 0.125%-NSS 100ML BAG ONE (18:22)
[2024-03-09] MEDS: ePHEDrine sulfate 50 MG/ML AMP ONE (18:31)
[2024-03-09] MEDS: diphenhydrAMINE 50 MG/ML VIAL IV PRN (20:22)
[2024-03-09] MEDS: ONDANSETRON INJ 2 MG/ML 2 ML VIAL IV PRN (20:36)
[2024-03-09] MEDS: OXYTOCIN 30 UNITS/NSS 30 UNITS/500 ML BAG IV PRN (21:19)
--- NOTE | 2024-03-09 21:57 | Delivery Summary ---
Vaginal Delivery Summary Date of Service March 09, 2024 Vaginal Delivery Summary [facility] Vaginal Delivery Summary: Pre-delivery diagnoses: 33yo @ 38 3/7, spontaneous labor, GDMA2, obesity, short interval Post-delivery diagnoses: same Procedure: spontaneous vaginal delivery, manual extraction of placenta Surgeon: Rossy Last DO Complications: none Findings: Viable male . Apgars: 8/9 . Weight pending, please see nursery records Estimated QBL 300ml Description of delivery: The patient progressed to complete with epidural anesthesia. She then began to push. She spontaneously vaginally delivered a viable from the cephalic presentation. The head delivered in BRINDA position. The anterior shoulder delivered, followed by the posterior shoulder, followed by the body. The baby was placed on mother's abdomen and a spontaneous cry was heard. Delayed cord clamping was employed, and the cord was doubly clamped and cut. Cord blood was obtained. Attempt at placental delivery with gentle cord traction resulted in cord avulsion, therefore attempt at manual sweep was made. Bladder was very full - therefore bladder was drained with catheter, and another attempt was made. This sweep was successful in removing placenta manually. Sweep after extraction of placenta revealed no fragments and smooth uterine krishna. The uterus and vagina were swept of clots and debris. IV pitocin was given. The uterus became firm. The cervix, vagina, and perineum were inspected and no lacerations were noted. Excellent hemostasis was observed. Will give 1g Ancef x 24h q8h to reduce infection risk after manual extraction. Discussed wiht patient. The mother and baby are recovering in stable and good condition in the room. Sponge and instrument counts were correct x 2. Rossy Last DO [facility] Delivery Charge Vaginal Delivery Codes: 83995 global code for the antepartum, delivery, and post- Delivery Type Details: [facility]
[2024-03-09] MEDS ORDERED: oxyCODONE/ACETAMINOPHEN 5mg/325mg TAB PO PRN (22:11)
[2024-03-09] MEDS ORDERED: HYDROCORTISONE ACETATE 25 MG SUPP PR PRN (22:11)
[2024-03-09] MEDS ORDERED: ACETAMINOPHEN 325 MG TAB PO PRN (22:11)
[2024-03-09] MEDS: FLUoxetine HCL 10 MG CAP PO SCH (22:28)
[2024-03-09] MEDS: ceFAZolin 1000MG 1,000 MG/7.5 ML SYR IV SCH (22:28)
[2024-03-09] MEDS: DIPHTHER/TETAN/PERTUS Vaccine (Tdap, Adol/Adult) 0.5mL IM ONE (23:12)
[2024-03-09] MEDS: BENZOCAINE 20% SPRY 85 APPLN/85 GM CAN EXT PRN (23:38)
--- NOTE | 2024-03-10 05:51 | Obstetrical Progress Note ---
Date of Service March 10, 2024 Assessment & Plan (1) Encounter for care and examination after delivery: Plan Encourage breast feeding Encourage ambulation Pain meds as needed Anticipate DC to home 03/11/24 Admission and Anticipated Discharge Date Admission Date: March 09, 2024 Supervising Physician Co-Signing Physician Notes Resident Physician Supervision Note: I interviewed and examined the patient. Discussed with Dr. Lopez and agree with findings and plan as documented in the note. Any exceptions or clarifications are listed here: PPD#1 doing well. Routine care. Documented By: Rossy Last, Subjective Pt is 33 yo post- day 1 s/p at 38w3d. complicated by GDMA2. Ambulation:In and out of room Voiding:voiding normally Passing gas: no BM: no Diet tolerance:regular diet Lochia:bloody, no clots Feeding type: breast Current pain level: 3 /10 at epidural site improved with ibuprofen or tylenol Resting comfortably this morning in NAD. Denies EDGE, CP, SOB, N/V/D, LE pain/swelling. Review of Systems Review of Systems: As per HPI Physical Exam Constitutional: WD/WN, vitals as above Respiratory: normal respiratory effort, lungs clear to auscultation Cardiovascular: RRR, no murmur, no edema Extremities: no edema Gastrointestinal (Abdomen): normal bowel sounds, soft, nontender, no hepatospl enomegaly Uterine fundus firm and 1 cm above level of umbilicus Neurologic: PERRL, EOMI, accommodation nl, no face palsy, no dysarthria Moving all 4 extremities on command Psychiatric: A+Ox3, euthymic affect Results & Data Vital Signs (Past 12 Hours) Vital Signs Temp Pulse Pulse Resp BP BP Pulse Ox 03/10/24 02:31 36.6 C 85 16 126/81 97 03/09/24 23:30 36.7 C 90 16 139/87 97 03/09/24 23:20 104 H 125/67 03/09/24 23:19 102 H 96 03/09/24 23:17 109 H 94 03/09/24 23:14 114 H 95 03/09/24 23:09 104 H 97 03/09/24 23:08 107 H 133/60 03/09/24 23:04 109 H 96 03/09/24 22:59 97 H 96 12/01/24 22:55 97 H 126/59 L 03/09/24 22:54 96 H 97 03/09/24 22:49 95 03/09/24 22:49 110 H 03/09/24 22:49 111 H 89 L 03/09/24 22:43 102 H 94 03/09/24 22:38 97 03/09/24 22:38 107 H 03/09/24 22:38 105 H 139/97 03/09/24 22:34 97 H 94 03/09/24 22:33 87 96 03/09/24 22:28 101 H 95 03/09/24 22:23 98 H 95 03/09/24 22:18 100 H 92 03/09/24 22:13 93 H 97 03/09/24 22:08 97 03/09/24 22:08 93 H 03/09/24 22:08 87 143/85 H 03/09/24 22:03 99 H 99 03/09/24 21:58 97 H 98 03/09/24 21:53 97 H 98 03/09/24 21:48 101 H 98 03/09/24 21:43 112 H 97 03/09/24 21:38 97 03/09/24 21:38 104 H 03/09/24 21:38 106 H 137/78 03/09/24 21:36 108 H 94 03/09/24 21:33 101 H 97 03/09/24 21:29 114 H 93 03/09/24 21:28 113 H 96 03/09/24 21:23 102 H 98 03/09/24 21:18 110 H 95 03/09/24 21:13 110 H 99 03/09/24 21:09 89 L 03/09/24 21:09 116 H 03/09/24 21:09 109 H 183/122 H 03/09/24 21:08 109 H 99 03/09/24 21:03 146 H 100 03/09/24 20:58 114 H 100 03/09/24 20:54 101 H 93 03/09/24 20:53 105 H 94 03/09/24 20:48 102 H 98 03/09/24 20:47 103 H 92 03/09/24 20:43 94 H 99 03/09/24 20:38 99 03/09/24 20:38 96 H 03/09/24 20:38 103 H 149/90 H 03/09/24 20:33 106 H 96 03/09/24 20:28 99 H 99 03/09/24 20:27 102 H 93 03/09/24 20:23 108 H 97 03/09/24 20:18 108 H 99 03/09/24 20:13 99 H 98 03/09/24 20:08 92 H 149/84 H 99 03/09/24 20:03 99 H 100 03/09/24 20:00 112 H 92 03/09/24 19:58 98 H 100 03/09/24 19:54 106 H 94 03/09/24 19:53 117 H 100 03/09/24 19:48 93 H 97 03/09/24 19:43 97 H 96 03/09/24 19:38 99 03/09/24 19:38 91 H 03/09/24 19:38 91 H 128/84 03/09/24 19:33 88 95 03/09/24 19:28 101 H 99 03/09/24 19:24 98 H 93 03/09/24 19:23 97 H 95 03/09/24 19:18 97 H 89 L 03/09/24 19:13 108 H 98 03/09/24 19:08 114 H 100 03/09/24 19:03 102 H 98 03/09/24 19:02 106 H 136/77 03/09/24 19:00 16 03/09/24 19:00 97 H 16 93 03/09/24 18:58 108 H 99 03/09/24 18:57 108 H 134/79 03/09/24 18:53 113 H 100 03/09/24 18:52 112 H 121/77 03/09/24 18:48 115 H 100 03/09/24 18:47 129 H 134/63 03/09/24 18:43 105 H 99 03/09/24 18:42 115 H 133/72 03/09/24 18:38 114 H 100 03/09/24 18:36 130 H 122/73 03/09/24 18:33 127 H 98 03/09/24 18:31 120 H 119/68 03/09/24 18:30 16 03/09/24 18:30 16 03/09/24 18:29 126 H 18 113/60 03/09/24 18:28 128 H 98 03/09/24 18:27 118 H 114/63 03/09/24 18:25 127 H 16 114/58 L 03/09/24 18:23 112 H 124/68 97 03/09/24 18:22 16 03/09/24 18:22 16 03/09/24 18:21 106 H 139/79 03/09/24 18:19 98 H 140/93 03/09/24 18:18 96 H 96 03/09/24 18:13 95 H 99 03/09/24 18:08 90 94 03/09/24 18:03 94 H 100 03/09/24 18:02 91 H 92 03/09/24 17:58 87 99 03/09/24 17:53 85 100 O2 Del Method 03/10/24 02:31 Room Air 03/09/24 23:30 Room Air 03/09/24 23:20 03/09/24 23:19 03/09/24 23:17 03/09/24 23:14 03/09/24 23:09 03/09/24 23:08 03/09/24 23:04 03/09/24 22:59 03/09/24 22:55 03/09/24 22:54 03/09/24 22:49 03/09/24 22:49 03/09/24 22:49 03/09/24 22:43 03/09/24 22:38 03/09/24 22:38 03/09/24 22:38 03/09/24 22:34 03/09/24 22:33 03/09/24 22:28 03/09/24 22:23 03/09/24 22:18 03/09/24 22:13 03/09/24 22:08 03/09/24 22:08 03/09/24 22:08 03/09/24 22:03 03/09/24 21:58 03/09/24 21:53 03/09/24 21:48 03/09/24 21:43 03/09/24 21:38 03/09/24 21:38 03/09/24 21:38 03/09/24 21:36 03/09/24 21:33 03/09/24 21:29 03/09/24 21:28 03/09/24 21:23 03/09/24 21:18 03/09/24 21:13 03/09/24 21:09 03/09/24 21:09 03/09/24 21:09 03/09/24 21:08 03/09/24 21:03 03/09/24 20:58 03/09/24 20:54 03/09/24 20:53 03/09/24 20:48 03/09/24 20:47 03/09/24 20:43 03/09/24 20:38 03/09/24 20:38 03/09/24 20:38 03/09/24 20:33 03/09/24 20:28 03/09/24 20:27 03/09/24 20:23 03/09/24 20:18 03/09/24 20:13 03/09/24 20:08 03/09/24 20:03 03/09/24 20:00 03/09/24 19:58 03/09/24 19:54 03/09/24 19:53 03/09/24 19:48 03/09/24 19:43 03/09/24 19:38 03/09/24 19:38 03/09/24 19:38 03/09/24 19:33 03/09/24 19:28 03/09/24 19:24 03/09/24 19:23 03/09/24 19:18 03/09/24 19:13 03/09/24 19:08 03/09/24 19:03 03/09/24 19:02 03/09/24 19:00 03/09/24 19:00 03/09/24 18:58 03/09/24 18:57 03/09/24 18:53 03/09/24 18:52 03/09/24 18:48 03/09/24 18:47 03/09/24 18:43 03/09/24 18:42 03/09/24 18:38 03/09/24 18:36 03/09/24 18:33 03/09/24 18:31 03/09/24 18:30 03/09/24 18:30 03/09/24 18:29 03/09/24 18:28 03/09/24 18:27 03/09/24 18:25 03/09/24 18:23 03/09/24 18:22 03/09/24 18:22 03/09/24 18:21 03/09/24 18:19 03/09/24 18:18 03/09/24 18:13 03/09/24 18:08 03/09/24 18:03 03/09/24 18:02 03/09/24 17:58 03/09/24 17:53 Resident Activity Tracking Resident Involvement: Resident Care Provided Care Provided: Adult Hospital Medicine
[2024-03-10 06:22] LABS: Hematocrit (blood only) 34.3 % (37.0-47.0); Hemoglobin 11.7 g/dl (12.0-16.0)
[2024-03-10] MEDS: IBUPROFEN 600 MG TAB PO PRN (06:30)
--- NOTE | 2024-03-10 09:17 | Anesthesia Procedure Note ---
Date of Service March 10, 2024 Anesthesia Post Epidural Note Vital Signs Vital Signs: Temp Pulse Resp BP Pulse Ox O2 Del Method 36.6 C 85 16 126/81 97 Room Air 03/10/24 02:31 03/10/24 02:31 03/10/24 02:31 03/10/24 02:31 03/10/24 02:31 03/10/24 02:31 Notes Mental Status: alert / awake / arousable Nausea / Vomiting: adequately controlled Pain: adequately controlled Airway Patency, RR, SpO2: stable & adequate BP & HR: stable & adequate Hydration State: stable & adequate Neuraxial Anesthesia: was administered and sensory block is resolving Anesthetic Complications: no major complications apparent and Pt Satisfied with anesthetic care Epidural: Removed without complications and With tip intact
[2024-03-10] MEDS: DOCUSATE SODIUM 100 MG CAP PO SCH (11:13)
[2024-03-10] MEDS: PRENATAL VITAMIN 1 TAB PO SCH (11:13)
[2024-03-10] MEDS: bisacodyL 5 MG TABEC PO SCH (20:41)
[2024-03-11] MEDS ORDERED: bisacodyL 10 MG SUPP PR PRN
--- NOTE | 2024-03-11 06:12 | Obstetrical Progress Note ---
Date of Service March 11, 2024 Assessment & Plan (1) Encounter for care and examination after delivery: Plan Encourage breast feeding Encourage ambulation Pain meds as needed No sings of DVT, pt educated regarding waning signs Anticipate DC to home today Admission and Anticipated Discharge Date Admission Date: March 09, 2024 Supervising Physician Co-Signing Physician Notes Patient seen with resident and agree with the above findings and plan. Patient doing well and stable for discharge Subjective Pt is 33 yo post- day 2 s/p at 38w3d. complicated by GDMA2. Ambulation:In and out of room Voiding:voiding normally Passing gas: yes BM: no Diet tolerance:regular diet Lochia:bloody, no clots Feeding type: breast Current pain level: 0-2 /10 at epidural site improved with ibuprofen or tylenol Resting comfortably this morning in NAD. Denies EDGE, CP, SOB, N/V/D, LE pain/swelling. Reported some left calf tightness last night. Better this morning. Not tender or painful to walk Review of Systems Review of Systems: As per HPI Physical Exam Constitutional: WD/WN, vitals as above Respiratory: normal respiratory effort, lungs clear to auscultation Cardiovascular: RRR, no murmur, no edema Extremities: no edema (Left leg is normal in color. No tenderness to palpation, Homans negative.) Gastrointestinal (Abdomen): normal bowel sounds, soft, nontender, no hepatosplenomegaly Uterine fundus is firm and 1 cm below umbilicus Neurologic: PERRL, EOMI, accommodation nl, no face palsy, no dysarthria Psychiatric: A+Ox3, euthymic affect Results & Data Vital Signs (Past 12 Hours) Vital Signs Temp Pulse Resp BP Pulse Ox O2 Del Method 03/11/24 00:00 36.6 C 90 14 112/76 Room Air 03/10/24 20:00 36.5 C 84 16 127/85 100 Room Air Resident Activity Tracking Resident Involvement: Resident Care Provided Care Provided: Adult Hospital Medicine
[2024-03-11 07:23] VITALS: BP 137/88; PULSE 87; RESP 16; TEMP 97.3; O2SAT 97
== END 2024-03-11 10:35 | disposition home or self-care (01) | DRG 807 ==
LOC: OPB 15:02 → 4S1 15:04 → 4E2 23:42